=== PATIENT | male | born 1950 | race African-American/Black ===

== ENCOUNTER 2025-04-03 01:09 | Emergency (ER) | payer MEDICARE, MEDICAID ==
[~2025-04-03] VITALS: Ht 175.3 cm; Wt 87.0 kg
[2025-04-03 01:31] VITALS: O2SAT 95
[2025-04-03] MEDS: MORPHINE SULFATE 4 MG/ML INJ (FOR IV/IM USE) IV ONE (02:14)
[2025-04-03 02:27] LABS: PLATELET 192 x1000/uL (130-400); RED BLOOD CELL COUNT 4.35 mill/uL (4.7-6.1); RED CELL DISTRIBUTION WIDTH 14.6 % (11.6-14.6)
[2025-04-03 02:54] LABS: CREATININE 0.9 mg/dL (0.6-1.3); UREA NITROGEN BLOOD 10 mg/dL (9-23)
[2025-04-03] MEDS ORDERED: IBUP-2030 MT (04:39)
[2025-04-03 05:06] VITALS: BP 144/91; PULSE 105; RESP 16; TEMP 36.9; O2SAT 96
== END 2025-04-03 05:33 | disposition home or self-care (01) ==
LOC: ER 01:09 → CMPBEDREQ 10:51
DX: M25.571 Pain in right ankle and joints of right foot (principal); M25.561 Pain in right knee; E11.9 Type 2 diabetes mellitus without complications; E78.00 Pure hypercholesterolemia, unspecified; F17.200 Nicotine dependence, unspecified, uncomplicated; G20.A1 Parkinson's disease without dyskinesia, without mention of fluctuations; I10 Essential (primary) hypertension
CPT/HCPCS: 99284; 96374; 80048; 85027; 85379; 36415; 73560; 73610; 73630; J2270